=== PATIENT | male | born 1995 | race Caucasian/White ===

== ENCOUNTER 2018-11-01 13:54 | Emergency (ER) | payer BC, OTHER ==
--- NOTE | 2018-11-01 16:02 | EDPHY ---
H & P Time Seen by Provider: 11/01/18 15:28 HPI/ROS: CHIEF COMPLAINT: Hematuria, flank pain, left testicular pain HISTORY OF PRESENT ILLNESS: Patient is a 23-year-old male who presents emergency department with bilateral flank pain radiating to his left testicle. Patient states that yesterday he the head intercourse with his girlfriend noticed some small slight bloody discharge from his penis. Soon thereafter he saw a "kidney stone" come out his penis. Patient was doing well last evening. This morning he awoke with bilateral lower flank pain and left testicular pain. He discussed this with his father told him to drink water. After drinking a significant amount of water his testicular pain resolved. He had no trauma prior to the onset of his testicular pain. No testicular swelling. No palpable mass. Patient states he has had kidney stones before. This feels similar. No dysuria or frequency. REVIEW OF SYSTEMS: 10 systems were reveiwed and are negative with the exception of the elements mentioned in the history of present illness. Past Medical/Surgical History: Previous kidney stone Past surgical history: Tonsillectomy Smoking Status: Never smoked Physical Exam: Vitals noted GENERAL: Well-appearing, in no acute distress, alert. HEENT: Eyes normal to inspection, normal pharynx, no signs of dehydration. NECK: Normal, supple. RESPIRATORY: Clear to auscultation bilaterally, no rales, rhonchi or wheezing. CVS: Regular rate and rhythm, no rubs, murmurs, or gallops. ABDOMEN: Soft, nontender, nondistended, no organomegaly. : Penis appears normal. No discharge. Normal appearing testes bilaterally. No palpable mass or tenderness. Normal cremaster BACK: Normal to inspection, mild right CVA tenderness. SKIN: Normal color, no rash, warm, dry. No pallor. EXTREMITIES: No pedal edema, no joint swelling. NEURO/PSYCH: Alert and oriented, normal mood and affect, normal motor sensory exam. Constitutional: Initial Vital Signs Temperature (C) 36.9 C 11/01/18 13:58 Heart Rate 91 11/01/18 13:58 Respiratory Rate 16 11/01/18 13:58 Blood Pressure 128/65 H 11/01/18 13:58 O2 Sat (%) 96 11/01/18 13:58 O2 Delivery Mode Room Air Allergies/Adverse Reactions: No Known Allergies Allergy (Unverified 11/01/18 13:58) Home Medications: Medication Instructions Recorded Fluticasone Nasal [Flonase Nasal 2 sprays NASAL DAILY #1 mdi 12/10/15 [place] (RX)] Adderall 10 MG (*) 11/01/18 Medical Decision Making ED Course/Re-evaluation: In the emergency department I discussed possible etiologies with the patient's family. I answered all his questions. An IV was placed. Laboratory studies, and CT were ordered. The patient did not want any pain medication. UA negative CBC and chemistry unremarkable. On recheck the patient had no complaints. CT of the abdomen pelvis: Please refer the dictated report by Dr. Garcia. No acute disease noted. Discussed the results with the patient. I answered all his questions. He has no complaints at the time of recheck. He is given warnings prior to leaving. Will return with worsening symptoms. Differential Diagnosis: My differential includes but is not limited to kidney stone, urinary tract infection, pyelonephritis, STD, testicular torsion, testicular mass - Data Points Laboratory Results: Laboratory Results 11/01/18 16:08 11/01/18 16:08 11/01/18 11/01/18 11/01/18 16:08 16:08 14:00 WBC 7.30 10^3/uL 10^3/uL (3.80-9.50) RBC 5.30 10^6/uL 10^6/uL (4.40-6.38) Hgb 16.2 g/dL g/dL (13.7-17.5) Hct 46.7 % % (40.0-51.0) MCV 88.1 fL fL (81.5-99.8) MCH 30.6 pg pg (27.9-34.1) MCHC 34.7 g/dL g/dL (32.4-36.7) RDW 12.6 % % (11.5-15.2) Plt Count 206 10^3/uL 10^3/uL (150-400) MPV 9.1 fL fL (8.7-11.7) Neut % (Auto) 60.0 % % (39.3-74.2) Lymph % (Auto) 26.6 % % (15.0-45.0) [place] % (Auto) 11.5 % % (4.5-13.0) Eos % (Auto) 1.1 % % (0.6-7.6) Baso % (Auto) 0.5 % % (0.3-1.7) Nucleat RBC Rel Count 0.0 % % (0.0-0.2) Absolute Neuts (auto) 4.38 10^3/uL 10^3/uL (1.70-6.50) Absolute Lymphs (auto) 1.94 10^3/uL 10^3/uL (1.00-3.00) Absolute Monos (auto) 0.84 10^3/uL H 10^3/uL (0.30-0.80) Absolute Eos (auto) 0.08 10^3/uL 10^3/uL (0.03-0.40) Absolute Basos (auto) 0.04 10^3/uL 10^3/uL (0.02-0.10) Absolute Nucleated RBC 0.00 10^3/uL 10^3/uL (0-0.01) Immature Gran % 0.3 % % (0.0-1.1) Immature Gran # 0.02 10^3/uL 10^3/uL (0.00-0.10) Sodium 135 mEq/L mEq/L (135-145) Potassium 3.8 mEq/L mEq/L (3.5-5.2) Chloride 107 mEq/L mEq/L (97-110) Carbon Dioxide 21 mEq/l L mEq/l (22-31) Anion Gap 7 mEq/L mEq/L (6-14) BUN 12 mg/dL mg/dL (7-23) Creatinine 1.1 mg/dL mg/dL (0.7-1.3) Estimated GFR > 60 Glucose 93 mg/dL mg/dL (70-100) Calcium 9.2 mg/dL mg/dL (8.5-10.4) Urine Color Urine Appearance Urine pH Ur Specific [place] Urine Protein Urine Ketones Urine Blood Urine Nitrate Urine Bilirubin Urine Urobilinogen Ur Leukocyte Esterase Urine Glucose C.trachomatis RNA (TMA) Pending N.gonorrhoeae RNA (TMA) Pending 11/01/18 14:00 WBC RBC Hgb Hct MCV MCH MCHC RDW Plt Count MPV Neut % (Auto) Lymph % (Auto) [place] % (Auto) Eos % (Auto) Baso % (Auto) Nucleat RBC Rel Count Absolute Neuts (auto) Absolute Lymphs (auto) Absolute Monos (auto) Absolute Eos (auto) Absolute Basos (auto) Absolute Nucleated RBC Immature Gran % Immature Gran # Sodium Potassium Chloride Carbon Dioxide Anion Gap BUN Creatinine Estimated GFR Glucose Calcium Urine Color YELLOW Urine Appearance HAZY Urine pH 7.0 (5.0-7.5) Ur Specific [place] 1.011 (1.002-1.030) Urine Protein NEGATIVE (NEGATIVE) Urine Ketones NEGATIVE (NEGATIVE) Urine Blood NEGATIVE (NEGATIVE) Urine Nitrate NEGATIVE (NEGATIVE) Urine Bilirubin NEGATIVE (NEGATIVE) Urine Urobilinogen NEGATIVE EU EU (0.2-1.0) Ur Leukocyte Esterase NEGATIVE (NEGATIVE) Urine Glucose NEGATIVE (NEGATIVE) C.trachomatis RNA (TMA) N.gonorrhoeae RNA (TMA) Medications Given: Discontinued Medications Sodium Chloride (Ns) 1,000 mls @ 0 mls/hr IV EDNOW ONE; Wide Open PRN Reason: Protocol Stop: 11/01/18 16:05 Last Admin: 11/01/18 16:16 Dose: 1,000 mls Departure - Departure Disposition: Home, Routine, Self-Care Clinical Impression: Testicular pain, left, Flank pain Condition: Good Instructions: Flank Pain (ED), Kidney Stones (ED) Additional Instructions: Return with increasing testicular pain, testicular swelling, fever, chills or any other concerns. Referrals: Ayleen Ramirez MD [Medical Doctor] - 3-4 days, if not improved
[2018-11-01] MEDS ORDERED: NS 1,000 ML IV ONE (16:04)
[2018-11-01 16:26] LABS: PLATELET COUNT 206 10^3/uL (150-400)
[2018-11-01 17:53] VITALS: BP 127/60
[2018-11-02 12:09] LABS: GC AMPLIFICATION GENPROBE NEGATIVE (NEGATIVE)
== END 2018-11-01 17:57 | disposition home or self-care (01) ==
DX: N50.812 Left testicular pain (principal); R10.9 Unspecified abdominal pain; R31.9 Hematuria, unspecified; E86.9 Volume depletion, unspecified